=== PATIENT | female | born 1990 | race Caucasian/White ===

== ENCOUNTER → 2018-08-21 | Outpatient (REF) | payer OTHER ==
[2018-08-22 15:29] LABS: CHLAMYDIA DNA AMPLIFICATION NEGATIVE (NEGATIVE); GC DNA AMPLIFICATION NEGATIVE (NEGATIVE)
[2018-08-24 14:44] LABS: HPV HYBRID CAPTURE II Negative (Negative)
== END ==
LOC: M LAB REF 18:55
PROVIDERS: ATTEND Family Medicine
DX: Z01.419 Encounter for gynecological examination (general) (routine) without abnormal findings (principal)
CPT/HCPCS: 87491; 87591; 87624; G0123

== ENCOUNTER → 2018-10-02 | Outpatient (CLI) | payer OTHER ==
--- NOTE | 2018-10-02 18:35 | REP ---
Clinical: Acute bronchitis. Coughing and wheeze. Comparison: None . Technique: PA and lateral. Findings: The mediastinum and cardiac silhouette are normal. The lung jay are clear and without acute consolidation, effusion, or pneumothorax. The skeletal structures are intact and normal. Impression: 1. No acute cardiopulmonary process. Electronically Signed by Iam Ceballos MD 10/02/2018 06:26 P
== END ==
LOC: M SMT 10:58
PROVIDERS: ATTEND Family Medicine
DX: Z87.09 Personal history of other diseases of the respiratory system (principal)

== ENCOUNTER → 2018-11-30 | Outpatient (CLI) | payer OTHER ==
[~2018-11-30] MED LIST: HYDR-4571 PO; OMEP20TA9 PO; OMEP40CA2 PO; TRI-1TAB20 PO; bcp PO
[2018-11-30 09:44] LABS: BASO # 0.1 10^3/uL (0.0-0.2); BASO % 0.6 % (0.0-1.0); EOS # 0.1 10^3/uL (0.0-0.50); EOS % 1.6 % (0.0-3.0); HEMATOCRIT 41.2 % (36.0-47.0); LYMPH # 2.4 10^3/uL (1.5-6.5); LYMPH % 27.7 % (24.0-44.0); MEAN CORPUSCULAR HEMOGLOBIN 22.9 pg (27.0-33.0); MEAN CORPUSCULAR HGB CONC 31.6 g/dl (32.0-36.5); MEAN CORPUSCULAR VOLUME 72.7 fl (80.0-96.0); MONO # 0.4 10^3/uL (0.0-0.8); MONO % 4.7 % (0.0-5.0); NEUTROPHILS # 5.6 10^3/uL (1.8-7.7); NEUTROPHILS % 65.3 % (36.0-66.0); PLATELET COUNT, AUTOMATED 360 10^3/uL (150-450); RED BLOOD COUNT 5.67 10^6/uL (4.00-5.40); WHITE BLOOD COUNT 8.5 10^3/uL (4.0-10.0)
[2018-11-30 10:09] LABS: ALBUMIN 3.7 GM/DL (3.2-5.2); ALT/SGPT 25 U/L (12-78); BILIRUBIN,TOTAL 0.3 MG/DL (0.2-1.0); BLOOD UREA NITROGEN 17 MG/DL (7-18); CALCIUM LEVEL 8.5 MG/DL (8.5-10.1); CARBON DIOXIDE LEVEL 27 MEQ/L (21-32); CHLORIDE LEVEL 108 MEQ/L (98-107); CREATININE FOR GFR 0.58 MG/DL (0.55-1.30); GLOMERULAR FILTRATION RATE > 60.0 (>60); GLUCOSE, FASTING 85 MG/DL (70-100); LIPASE 167 U/L (73-393); POTASSIUM SERUM 4.5 MEQ/L (3.5-5.1); SODIUM LEVEL 138 MEQ/L (136-145); TOTAL PROTEIN 7.5 GM/DL (6.4-8.2)
--- NOTE | 2018-12-01 02:47 | REP ---
Clinical: Right upper quadrant pain. Technique: Real time morataya scale ultrasound examination using curved array transducer. Findings: Liver and visualized pancreas are normal in contour, size, and overall appearance. No focal hepatic or pancreatic lesions are identified. Mild fatty infiltration to the liver cannot be excluded. The gallbladder is normal and without gallstones, wall thickening, or pericholecystic fluid. No biliary ductal dilatation is appreciated and the common bile duct measures 2.5 mm diameter. The right kidney is normal in reniform shape and appearance without hydronephrosis and measures 12.3 x 5.9 x 6.0 cm. No ascites. Impression: 1. Possible mild fatty infiltration to the liver. 2. Otherwise normal right upper quadrant ultrasound examination. Electronically Signed by Iam Ceballos MD 12/01/2018 02:39 A
== END ==
LOC: M LAB 08:55
PROVIDERS: ATTEND Internal Medicine Gastroenterology
DX: K76.0 Fatty (change of) liver, not elsewhere classified (principal)

== ENCOUNTER 2018-12-02 04:54 | Day surgery (SDC) | payer OTHER ==
[~2018-12-02] VITALS: Ht 165.1 cm; Wt 100.0 kg
[2018-12-02] MEDS ORDERED: OMEP20TA9 PO (05:00)
[2018-12-02] MEDS ORDERED: bcp PO (05:00)
[2018-12-02 05:20] LABS: BASO # 0.1 10^3/uL (0.0-0.2); BASO % 0.8 % (0.0-1.0); EOS # 0.1 10^3/uL (0.0-0.50); EOS % 0.8 % (0.0-3.0); HEMATOCRIT 40.6 % (36.0-47.0); HEMOGLOBIN 12.9 g/dl (12.0-15.5); LYMPH # 2.6 10^3/uL (1.5-6.5); LYMPH % 34.9 % (24.0-44.0); MEAN CORPUSCULAR HGB CONC 31.8 g/dl (32.0-36.5); MEAN CORPUSCULAR VOLUME 72.4 fl (80.0-96.0); MONO # 0.3 10^3/uL (0.0-0.8); MONO % 4.7 % (0.0-5.0); NEUTROPHILS # 4.3 10^3/uL (1.8-7.7); NEUTROPHILS % 58.7 % (36.0-66.0); PLATELET COUNT, AUTOMATED 361 10^3/uL (150-450); RED BLOOD COUNT 5.61 10^6/uL (4.00-5.40); WHITE BLOOD COUNT 7.3 10^3/uL (4.0-10.0)
[2018-12-02 05:43] LABS: ALBUMIN 3.7 GM/DL (3.2-5.2); ALT/SGPT 25 U/L (12-78); BILIRUBIN,DIRECT < 0.1 MG/DL (0.0-0.2); BILIRUBIN,TOTAL 0.3 MG/DL (0.2-1.0); BLOOD UREA NITROGEN 16 MG/DL (7-18); CALCIUM LEVEL 8.4 MG/DL (8.5-10.1); CARBON DIOXIDE LEVEL 27 MEQ/L (21-32); CHLORIDE LEVEL 106 MEQ/L (98-107); CREATININE FOR GFR 0.65 MG/DL (0.55-1.30); GLOMERULAR FILTRATION RATE > 60.0 (>60); GLUCOSE, FASTING 108 MG/DL (70-100); LIPASE 163 U/L (73-393); POTASSIUM SERUM 4.1 MEQ/L (3.5-5.1); SODIUM LEVEL 138 MEQ/L (136-145); TOTAL PROTEIN 7.6 GM/DL (6.4-8.2)
[2018-12-02] MEDS ORDERED: ONDANSETRON 4MG/2ML VIAL (J2405) As Ordered ONE ×2 (05:45→17:12)
[2018-12-02] MEDS ORDERED: NS 1,000 ML IV ONE (05:45)
[2018-12-02] MEDS ORDERED: MORPHINE 4 MG/ML 1ML VIAL/SYRINGE (J2270) As Ordered ONE (05:46)
[2018-12-02] MEDS ORDERED: MORPHINE 4 MG/ML 1ML VIAL/SYRINGE (J2270) IV ONE (06:00)
[2018-12-02] MEDS ORDERED: ONDANSETRON 4MG/2ML VIAL (J2405) IV ONE ×2 (06:00→07:45)
[2018-12-02 06:28] LABS: HCG, SERUM QUALITATIVE NEGATIVE (NEGATIVE)
[2018-12-02] MEDS ORDERED: GI COCKTAIL 50ML BTL(HYOSCYAMINE/MAALOX/LIDOCAINE VISCOUS)(1:3:1) PO ONE (07:00)
[2018-12-02] MEDS ORDERED: ISOVUE-370 76% 100ML VIAL (Q9967) As Ordered ONE (07:08)
--- NOTE | 2018-12-02 08:18 | REPVR ---
EXAM: CT Abdomen and Pelvis With Contrast EXAM DATE/TIME: 12/02/2018 7:14 AM CLINICAL HISTORY: 28 years old, female; Abdominal pain; Epigastric; Additional info: Epigastric abd pain TECHNIQUE: Imaging protocol: Axial computed tomography images of the abdomen and pelvis with intravenous contrast. Coronal and sagittal reformatted images were created and reviewed. Radiation optimization: All CT scans at this facility use at least one of these dose optimization techniques: automated exposure control; mA and/or kV adjustment per patient size (includes targeted exams where dose is matched to clinical indication); or iterative reconstruction. Contrast material: ISOVUE 370; Contrast volume: 100 ml; Contrast route: IV; COMPARISON: GALLBLADDER US 11/30/2018 9:20 AM FINDINGS: ABDOMEN: Liver: Normal. No mass. Gallbladder and bile ducts: Cholelithiasis. Pancreas: Next loss of definition of the plane between the pancreas head and adjacent duodenum. Limited bowel assessment by the lack of contrast. A duodenal diverticulum is not entirely excluded. 0.4 CM low attenuating structure in the anterior pancreas head possibly reflecting focal adjacent fat invagination at the margin. Spleen: Normal. No splenomegaly. Adrenals: Normal. No mass. Kidneys and ureters: Normal. No hydronephrosis. Stomach and bowel: See Pancreas Finding. Appendix: No evidence of appendicitis. PELVIS: Bladder: Unremarkable as visualized. Reproductive: Unremarkable as visualized. ABDOMEN and PELVIS: Intraperitoneal space: Normal. No free air. No significant fluid collection. Bones/joints: No acute fracture. No dislocation. Soft tissues: Unremarkable. Vasculature: Normal. No abdominal aortic aneurysm. Lymph nodes: Several scattered small mesenteric lymph nodes. IMPRESSION: 1. Small cholelithiasis. 2. Indistinction of the pancreas/duodenal fat plane with a duodenal diverticulum possible. Likely focal invagination of fat at the anterior pancreatic head. 3. Abdominal mesenteric adenopathy which could be reactive. Electronically signed by: Rea Luz On 12/02/2018 08:18:15 AM
[2018-12-02] MEDS ORDERED: METAL LOCK LOOP XX ONE (08:35)
[2018-12-02] MEDS: MORPHINE 4 MG/ML 1ML VIAL/SYRINGE (J2270) IV PRN ×2 (08:53→12:07)
--- NOTE | 2018-12-02 13:03 | REP ---
RIGHT UPPER QUADRANT ULTRASOUND: Real-time sonographic evaluation of the right upper quadrant performed. Multiple subcentimeter non-shadowing stones are seen. These are mobile. There appears to be gallbladder wall thickening, 11 mm in maximal thickness. No free fluid is seen in the right upper quadrant. There is no intrahepatic or extrahepatic biliary dilatation, common bile duct measuring 5 mm. No mass is seen in the liver or pancreas. Right kidney demonstrates no hydronephrosis with normal size 12.3 cm in length. IMPRESSION: Multiple mobile subcentimeter non-shadowing gallstones in the gallbladder. There does appear to be gallbladder wall thickening. No free fluid or biliary dilatation. Electronically Signed by Elias Miller MD 12/02/2018 03:51 P
[2018-12-02] MEDS ORDERED: OMEP40CA2 PO (13:58)
[2018-12-02] MEDS ORDERED: TRI-1TAB20 PO (13:58)
[2018-12-02] MEDS ORDERED: MORPHINE 4 MG/ML 1ML VIAL/SYRINGE (J2270) IV PRN ×2 (15:45)
[2018-12-02] MEDS ORDERED: ONDANSETRON 4MG/2ML VIAL (J2405) IV PRN (15:45)
[2018-12-02] MEDS: LR 1,000 ML IV SCH (16:00)
[2018-12-02] MEDS ORDERED: ROCURONIUM BROMIDE 50 MG/5 ML VIAL As Ordered ONE (16:02)
[2018-12-02] MEDS ORDERED: LIDOCAINE 2% INJ 100 MG/5 ML SDV (FOR ANES.) As Ordered ONE (16:02)
[2018-12-02] MEDS ORDERED: MIDAZOLAM INJ 2 MG/2 ML VIAL (J2250) As Ordered ONE (16:02)
[2018-12-02] MEDS ORDERED: PROPOFOL 200 MG/20 ML VIAL As Ordered ONE (16:02)
[2018-12-02] MEDS ORDERED: fentaNYL 250 MCG/5 ML INJECTION (J3010) As Ordered ONE (16:02)
[2018-12-02] MEDS: PIPERACILLIN/TAZOBACTAM SOD 3.375 GM in D5W MINI-BAG PLUS 50 ML IV SCH ×2 (16:36→22:46)
[2018-12-02] MEDS ORDERED: BUPIVACAINE HCL 0.25% 30 ML VIAL As Ordered ONE (16:52)
[2018-12-02] MEDS ORDERED: CONRAY-60 60% 50ML VIAL (Q9961) As Ordered ONE (16:56)
[2018-12-02] MEDS ORDERED: KETOROLAC 60 MG/2 ML VIAL (J1885) As Ordered ONE (17:12)
[2018-12-02] MEDS ORDERED: dexameTHASONE 4 MG/ML 1ML VIAL (J1100) As Ordered ONE (17:12)
[2018-12-02] MEDS ORDERED: METOCLOPRAMIDE INJ 10MG/2ML VIAL (J2765) As Ordered ONE (17:12)
[2018-12-02] MEDS ORDERED: NEOSTIGMINE 10 MG/10 ML VIAL (J2710) As Ordered ONE (17:17)
[2018-12-02] MEDS ORDERED: GLYCOPYRROLATE INJ 0.2 MG/ML 2 ML VIAL As Ordered ONE (17:17)
[2018-12-02] MEDS ORDERED: ePHEDrine SULFATE 25 MG/5 ML(5MG/ML) SYRINGE As Ordered ONE (17:26)
[2018-12-02] MEDS ORDERED: HYDROMORPHONE HCL 0.5 MG/ 0.5 ML SYRINGE (J1170 PER 1) IV PRN (19:00)
[2018-12-02] MEDS ORDERED: fentaNYL 100 MCG/2 ML INJECTION (J3010) IV PRN (19:00)
[2018-12-02] MEDS ORDERED: ACETAMINOPHEN TAB 650MG DOSE (2X325MG) PO PRN (19:15)
[2018-12-02] MEDS ORDERED: IBUPROFEN 600 MG TAB PO PRN (19:15)
[2018-12-02 20:00] VITALS: BP 127/80
[2018-12-02 20:30] VITALS: BP 129/66
[2018-12-02 21:30] VITALS: BP 120/78
[2018-12-02 22:30] VITALS: BP 124/72
[2018-12-02 23:30] VITALS: BP 120/70
[2018-12-03 00:30] VITALS: BP 122/73
[2018-12-03 02:00] VITALS: BP 113/55
[2018-12-03] MEDS: LR 1,000 ML IV SCH (03:26)
[2018-12-03] MEDS: NORCO, ANEXSIA 5/325MG TABLET (HYDROcodone/ACETAMINOPHEN) PO PRN ×2 (05:45→11:40)
[2018-12-03] MEDS: PIPERACILLIN/TAZOBACTAM SOD 3.375 GM in D5W MINI-BAG PLUS 50 ML IV SCH ×2 (05:45→11:32)
[2018-12-03 06:00] VITALS: BP 122/66
--- NOTE | 2018-12-03 09:23 | REP ---
C-ARM VIEWS DURING INTRAOPERATIVE CHOLANGIOGRAM: C-arm views are performed during intraoperative cholangiogram. Contrast opacifies the biliary system and flows freely into the duodenum. There is no biliary dilatation. No stricture is seen. No filling defect is seen in the common bile duct. A nasogastric tube is visualized. 4 seconds fluoroscopy time utilized. Electronically Signed by Elias Miller MD 12/03/2018 11:31 A
[2018-12-03 10:00] VITALS: BP 126/68
[2018-12-03] MEDS ORDERED: HYDR-4571 PO (12:34)
--- NOTE | 2018-12-04 07:11 | RO ---
DATE OF PROCEDURE: 12/02/2018 PREOPERATIVE DIAGNOSIS: Cholelithiasis and acute cholecystitis. POSTOPERATIVE DIAGNOSIS: Cholelithiasis and acute cholecystitis. PROCEDURE PERFORMED: Laparoscopic cholecystectomy with intraoperative cholangiogram. SURGEON: Dr. Jose Ratliff ARMAMENT REPAIRER: ANESTHESIA: General. INDICATIONS FOR PROCEDURE: The patient is a 28-year-old woman who presented to the emergency department with a history of several five to six hour long episodes of epigastric pain radiating through to her back. She had undergone a gallbladder ultrasound two2 days earlier that showed no abnormalities. In the emergency department, she had a CT scan that showed evidence of noncalcified gallstones. A followup ultrasound confirmed nonshadowing gallstones with evidence of significant gallbladder wall thickening. She had tenderness in the right upper quadrant. Her exam and history were felt to be consistent with acute cholecystitis and she is now for laparoscopic cholecystectomy. OPERATIVE PROCEDURE: The patient was brought to the operating room and placed on the table in a supine position. She was placed under general endotracheal anesthesia. The patient's abdomen was prepped and draped in a sterile fashion. 0.25% Marcaine was infiltrated at the trocar sites as needed. A short supraumbilical midline incision was made and deepened through the subcutaneous tissues to the fascia which was opened along the midline. The peritoneum was opened bluntly. A Oro cannula was inserted and the abdomen was inflated with carbon dioxide gas. The laparoscope was inserted. Initial examination showed a normal-appearing liver. The stomach appeared normal. Limited portions of the small and large bowel were seen and appeared normal. There was some omentum that appeared adherent up over the gallbladder. A 5 mm trocar was placed in the left upper quadrant and two 5 mm trocars were placed in the right upper quadrant. The patient was tilted to a reverse Trendelenburg position and rolled to the left. Inspection in the right upper quadrant showed that the gallbladder was clearly erythematous and markedly edematous with some filmy adhesions to the overlying omentum. The omentum was peeled away using the hook cautery. The gallbladder was tensely distended and this was therefore aspirated with an aspirating needle, yielding some very light yellow-green fluid. The gallbladder was then grasped and elevated. Dissection began at the gallbladder neck by incising the peritoneum on both sides of the gallbladder. The dissection was carried through the markedly edematous pericholecystic tissues using primarily the hook cautery. The artery was identified coming up the medial aspect of the gallbladder and this was clipped and divided. The cystic duct was clearly identified and was dissected free from surrounding structures. This was doubly clipped and divided. The clip was then removed from the cystic duct stump and a balloon cholangiogram catheter was inserted into the stump without difficulty. Cholangiograms were obtained with the injection of 30% Conray using fluoroscopy. Several images were obtained. These showed a normal thin biliary tree with free flow of contrast into the duodenum. The cystic duct was of moderate length. There appeared to be some opacification of the pancreatic duct as well. The cholangiogram catheter was then withdrawn and the cystic duct stump was clipped. The gallbladder was then dissected free from the gallbladder bed using cautery dissection. The gallbladder was not perforated in the course of dissection. The gallbladder was placed in an Endopouch. The right upper quadrant was then irrigated and inspected and there was no evidence of bleeding or bile leak. The patient was returned to a flat position. The abdomen was deflated and the trocars were all removed. The gallbladder was recovered through the Oro site without difficulty. There were no palpable stones within the gallbladder, but there was marked edema and thickening so palpation would have been of limited use in identifying small stones. The gallbladder was sent for permanent pathology. The fascia at the Oro site was closed with interrupted simple sutures of 2-0 Vicryl. The skin incisions were all closed with buried 5-0 Vicryl and Steri-Strips. Light dressings were applied. The patient tolerated the procedure well without apparent complication. She was awakened in the operating room, extubated and moved to the recovery room in stable condition.
--- NOTE | 2018-12-04 07:42 | IPN ---
DATE: 12/03/2018 HISTORY: The patient is now postop day #1 from a laparoscopic cholecystectomy for acute cholecystitis. She had an intraoperative cholangiogram that was normal as well. The patient reports that she has been doing well overnight. She is taking liquids well without any nausea or vomiting and has voided. She has been passing some flatus, but has not yet had a bowel movement. She has been using some [place] infrequently for postoperative pain. She does describe some discomfort up into her right shoulder and in the epigastrium. Vital signs show that she has been afebrile since surgery. Her pulse is in the 80s and 90s and her blood pressure is excellent. Intake and output shows that yesterday she had 2180 in with 1420 out. PHYSICAL EXAMINATION: The patient is sitting up in the bed looking quite comfortable. Her sclerae are anicteric. Skin is warm and dry. Heart exam shows a regular rhythm. The abdomen is nondistended, but obese. Her dressings are dry. I did change her dressings as the tape was pulling on the skin somewhat. She has bowel sounds present. The abdomen is without any undue tenderness. IMPRESSION: The patient is doing very well postop day #1 from her laparoscopic cholecystectomy and intraoperative cholangiogram for acute cholecystitis. PLAN: The patient will be discharged home today. She will be provided with a prescription for eight [place] in case she needs them, but will otherwise use [id number] meds as needed. She can advance her diet as she sees fit. She could shower 24 hours after the procedure and bathe or swim in about 5 days. She was advised to avoid any strenuous physical activity for 2 weeks. She is going to a wedding in [place] in 3 days and I advised her that I do not believe she will have any problems doing this. She was invited to call my office if there are any concerns that come up. I have asked her to follow up in my office in 10-14 days after her return from [place]. ARY
== END 2018-12-03 13:05 | disposition home or self-care (01) ==
LOC: M ED 04:54 → M SDC 15:35 → M MS5PR 19:55 → M SDC 12-03 13:05
PROVIDERS: ATTEND Surgery
DX: K80.18 Calculus of gallbladder with other cholecystitis without obstruction (principal); Z79.899 Other long term (current) drug therapy
CPT/HCPCS: 47563; 74177; 74300; 76705; 80048; 80076; 83690; 84703; 85025; 88304; 96374; 96375; 96376; 99285; J1100; J1885; J2250; J2270; J2405; J2543; J2710; J2765; J3010; Q9961; Q9967

== ENCOUNTER → 2020-06-06 | Outpatient (CLI) | payer SELFPAY ==
[~2020-06-06] MED LIST changes: -OMEP40CA2 PO; +OMEP40CA97 PO
== END ==
LOC: M LABSMTC 10:46
PROVIDERS: ATTEND Pediatrics
DX: Z20.828 Contact with and (suspected) exposure to other viral communicable diseases (principal)

== ENCOUNTER → 2020-07-23 | Outpatient (REF) | payer SELFPAY | LOC: M LABSMTC 12:09 → EDSTATUS 12:15 → M LABSMTC 15:15 | PROVIDERS: ATTEND Pediatrics | DX: Z20.828 Contact with and (suspected) exposure to other viral communicable diseases (principal) ==

== ENCOUNTER → 2020-08-04 | Outpatient (CLI) | payer SELFPAY | LOC: M LABSMTC 13:51 | PROVIDERS: ATTEND Pediatrics | DX: Z20.828 Contact with and (suspected) exposure to other viral communicable diseases (principal) ==

== ENCOUNTER → 2025-07-04 | Outpatient (RCR) ==
[~2025-07-04] MED LIST changes: +OMEP-611 PO; -OMEP20TA9 PO; +OMEP40CA4 PO; -OMEP40CA97 PO
== END ==
LOC: M EMP 06-25 15:01
PROVIDERS: ATTEND Family Medicine
DX: Z20.828 Contact with and (suspected) exposure to other viral communicable diseases (principal)